=== PATIENT | female | born 1965 | race African-American/Black ===

== ENCOUNTER 2017-01-17 14:04 | Emergency (ER) | payer BC ==
[2017-01-17 14:11] VITALS: BP 133/78
--- NOTE | 2017-01-17 14:28 | UC ---
Skin Complaint HPI - HPI Summary HPI Summary: 51 YEAR OLD FEMALE PRESENTS WITH COMPLAINS OF ABSCESS ON HER RIGHT BUTTOCK. CURRENTLY ON KEFLEX. - History of Current Complaint Chief Complaint: UCSkin Time Seen by Provider: 01/17/17 14:20 Stated Complaint: SKIN ISSUE Hx Obtained From: Patient Hx Last Menstrual Period: dec Onset/Duration: Lasting Days Skin Exposure Onset/Duration: Days Ago Onset Severity: Moderate Current Severity: Moderate Pain Scale Used: 0-10 Numeric - 7 Location: Discrete - LEFT BUTTOCK - Allergy/Home Medications Allergies/Adverse Reactions: Allergies Allergy/AdvReac Type Severity Reaction Status Date / Time Erythromycin Allergy Severe cramps Verified 01/17/17 14:07 Review of Systems Constitutional: Negative Skin: Other - ABSCESS RIGHT BUTTOCK Eyes: Negative ENT: Negative Respiratory: Negative Cardiovascular: Negative Gastrointestinal: Negative Genitourinary: Negative Motor: Negative Neurovascular: Negative Musculoskeletal: Negative Neurological: Negative Psychological: Negative All Other Systems Reviewed And Are Negative: Yes PMH/Surg Hx/FS Hx/Imm Hx - Surgical History Surgical History: Yes Surgery Procedure, Year, and Place: Fibroid embolization 2 years ago. Endoscopy to left shoulder 2014 umbilical hernia - Social History Alcohol Use: Occasionally Substance Use Type: None Smoking Status (MU): Never Smoked Tobacco - Immunization History Most Recent Tetanus Shot: UTD Physical Exam Triage Information Reviewed: Yes Vital Signs: Initial Vital Signs Temp 36.6 C 01/17/17 14:07 Pulse 46 01/17/17 14:07 Resp 16 01/17/17 14:07 BP 133/78 01/17/17 14:07 Pulse Ox 100 01/17/17 14:07 Vital Signs Reviewed: Yes Eye Exam: Normal ENT Exam: Normal Dental Exam: Normal Neck exam: Normal Neck: Positive: 1 Respiratory Exam: Normal Cardiovascular Exam: Normal Abdominal Exam: Normal Musculoskeletal Exam: Normal Neurological Exam: Normal Psychological Exam: Normal Skin: Positive: Other - ABSCESS RIGHT BUTTOCK Course/Dx - Diagnoses Provider Diagnoses: RIGHT BUTTOCK ABSCESS Discharge - Discharge Plan Condition: Stable Disposition: HOME Prescriptions: Ibuprofen TAB* [Motrin TAB* 800 MG] 800 mg PO Q8H #30 tab Mupirocin 2% OINT* [Bactroban 2 % Oint*] 1 applic TOPICAL BID #1 tube Sulfamethox/Trimethoprim DS* [Bactrim DS 800/160 TAB*] 1 tab PO BID #20 tab Patient Education Materials: Abscess (ED) Referrals: Mariel Tyler MD [Primary Care Provider] -
[2017-01-17] MEDS ORDERED: Lidocaine 2.5%/Prilocain 2.5%* 5 GM TUBE TOPICAL ONE (14:46)
== END 2017-01-17 15:20 | disposition home or self-care (01) ==
LOC: UCEAST 14:04
DX: L02.31 Cutaneous abscess of buttock (principal)
CPT/HCPCS: 87070; 87205; 99212; A9270-GY; G0463

== ENCOUNTER 2017-05-05 20:09 | Emergency (ER) | payer SELFPAY ==
[2017-05-05] MEDS ORDERED: Ibuprofen TAB* 600 MG PO ONE (21:28)
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
[2017-05-05 22:12] VITALS: BP 163/85
== END 2017-05-05 22:11 | disposition home or self-care (01) ==
LOC: ED 20:09
DX: S16.1XXA Strain of muscle, fascia and tendon at neck level, initial encounter (principal); V43.52XA Car driver injured in collision with other type car in traffic accident, initial encounter; Y92.410 Unspecified street and highway as the place of occurrence of the external cause
CPT/HCPCS: 99282; A9270-GY